=== PATIENT | male | born 1985 | race African-American/Black ===

== ENCOUNTER 2020-09-14 10:15 | Emergency (ER) | payer BC, SELFPAY | END 2020-09-14 10:57 | disposition home or self-care (01) | LOC: CSHERS 10:15 | DX: S33.5XXA Sprain of ligaments of lumbar spine, initial encounter (principal); K21.9 Gastro-esophageal reflux disease without esophagitis; X50.9XXA Other and unspecified overexertion or strenuous movements or postures, initial encounter | CPT/HCPCS: 99283 ==

== ENCOUNTER 2020-10-17 19:31 | Emergency (ER) | payer BC ==
[2020-10-17] MEDS ORDERED: EPINEPHrine 1 MG/ML AMP ONE (19:44)
[2020-10-17] MEDS ORDERED: Famotidine/PF 20 mg/2ml Vial ONE (19:47)
[2020-10-17] MEDS ORDERED: methylPREDNISolone Sod Succ/PF 125 MG/2 ML VIAL ONE (19:47)
[2020-10-17] MEDS ORDERED: diphenhydrAMINE 50 MG/ML VIAL ONE (19:47)
[2020-10-17] MEDS ORDERED: Ondansetron PF 4 MG/2 ML Vial ONE (19:52)
== END 2020-10-17 22:10 | disposition home or self-care (01) ==
LOC: CSHERS 19:31
DX: T78.09XA Anaphylactic reaction due to other food products, initial encounter (principal); K21.9 Gastro-esophageal reflux disease without esophagitis
CPT/HCPCS: 96372; 96374; 96375; J0171; J1200; J2405; J2930; S0028

== ENCOUNTER 2021-05-16 17:23 | Emergency (ER) | payer BC, SELFPAY | END 2021-05-16 18:10 | disposition home or self-care (01) | LOC: CSHERS 17:23 | DX: L29.9 Pruritus, unspecified (principal) | CPT/HCPCS: 99282 ==

== ENCOUNTER 2021-08-14 14:29 | Emergency (ER) | payer SELFPAY ==
[2021-08-14 17:04] LABS: #Eosinphils 0.1 10x3/uL (0.0-0.5); #Monocytes 0.4 10x3/uL (0.0-1.1); #Neutrophils 3.2 10x3/uL (1.5-8.4); %Basophils 0.3 % (0.0-2.0); %Eosinophils 1.9 % (0.0-6.0); %Lymphocytes 46.3 % (18.0-47.0); %Monocytes 5.5 % (0.0-10.0); %Neutrophils 45.7 % (40.0-75.0); Hemoglobin 14.4 g/dL (13.5-17.5); Mean Corpuscular Volume 84.7 fl (81.2-95.1); Mean Platelet Volume 10.2 fl (7.4-10.4); Platelet Count 282 10x3/uL (150-450); RBC Distribution Width 12.4 % (11.5-14.5); Red Blood Cell (RBC) Count 5.15 10x6/uL (4.32-5.72); White Blood Cell (WBC) Count 6.9 10x3/uL (3.5-10.5)
[2021-08-14 17:16] LABS: ALT (SGPT) 27 U/L (8-55); AST (SGOT) 19 U/L (5-34); Albumin 3.9 g/dL (3.5-5.0); Alkaline Phosphatase 59 U/L (40-110); Anion Gap 12 mmol/L (10-20); BUN (Urea Nitrogen) 9 mg/dL (8.9-20.6); Bilirubin, Total 0.6 mg/dL (0.2-1.2); Calc. Creatinine Clearance 0 mL/min (70-130); Calcium 9.2 mg/dL (7.8-10.44); Carbon Dioxide 26 mmol/L (22-29); Chloride 105 mmol/L (98-107); Globulin 4.1 g/dL (2.4-3.5); Glucose 77 mg/dL (70-105); Potassium 4.1 mmol/L (3.5-5.1); Sodium 139 mmol/L (136-145)
== END 2021-08-14 17:28 | disposition home or self-care (01) ==
LOC: CSHERS 14:29
DX: L29.9 Pruritus, unspecified (principal); K21.9 Gastro-esophageal reflux disease without esophagitis; R73.03 Prediabetes
CPT/HCPCS: 36415; 80053; 85025; 99283

== ENCOUNTER 2021-10-25 05:58 | Emergency (ER) | payer SELFPAY ==
[2021-10-25] MEDS ORDERED: Famotidine 20 MG TAB ONE (06:34)
[2021-10-25] MEDS ORDERED: Acetaminophen 500 MG TAB ONE (06:34)
[2021-10-25] MEDS ORDERED: Mag-Al Plus 1200 MG/1200 MG/120 MG/30 ML UDCUP ONE (06:35)
[2021-10-25 06:49] LABS: #Eosinphils 0.1 10x3/uL (0.0-0.5); #Monocytes 0.3 10x3/uL (0.0-1.1); #Neutrophils 3.3 10x3/uL (1.5-8.4); %Basophils 0.3 % (0.0-2.0); %Eosinophils 1.5 % (0.0-6.0); %Lymphocytes 39.1 % (18.0-47.0); %Monocytes 5.1 % (0.0-10.0); %Neutrophils 53.7 % (40.0-75.0); Hemoglobin 14.5 g/dL (13.5-17.5); Mean Corpuscular HGB CONC 33.3 g/dL (32.0-36.0); Mean Corpuscular Hemoglobin 28.4 pg (27.0-33.0); Mean Corpuscular Volume 85.5 fl (81.2-95.1); Mean Platelet Volume 10.1 fl (7.4-10.4); Platelet Count 251 10x3/uL (150-450); RBC Distribution Width 12.6 % (11.5-14.5); White Blood Cell (WBC) Count 6.1 10x3/uL (3.5-10.5)
[2021-10-25 07:05] LABS: ALT (SGPT) 23 U/L (8-55); AST (SGOT) 16 U/L (5-34); Albumin 3.7 g/dL (3.5-5.0); Alkaline Phosphatase 58 U/L (40-110); Anion Gap 12 mmol/L (10-20); BUN (Urea Nitrogen) 8 mg/dL (8.9-20.6); Bilirubin, Total 0.4 mg/dL (0.2-1.2); Calc. Creatinine Clearance 0 mL/min (70-130); Calcium 8.9 mg/dL (7.8-10.44); Carbon Dioxide 26 mmol/L (22-29); Chloride 107 mmol/L (98-107); Globulin 3.7 g/dL (2.4-3.5); Glucose 135 mg/dL (70-105); Potassium 3.8 mmol/L (3.5-5.1); Protein, Total 7.4 g/dL (6.0-8.3); Sodium 141 mmol/L (136-145)
== END 2021-10-25 08:19 | disposition home or self-care (01) ==
LOC: CSHERS 05:58
DX: R07.89 Other chest pain (principal); K21.9 Gastro-esophageal reflux disease without esophagitis; R51.9 Headache, unspecified
CPT/HCPCS: 36415; 71045; 80053; 84484; 85025; 93005

== ENCOUNTER 2021-12-02 10:07 | Emergency (ER) | payer SELFPAY ==
[2021-12-02 11:32] LABS: ALT (SGPT) 19 U/L (8-55); AST (SGOT) 16 U/L (5-34); Albumin 3.9 g/dL (3.5-5.0); Alkaline Phosphatase 46 U/L (40-110); Anion Gap 13 mmol/L (10-20); BUN (Urea Nitrogen) 8 mg/dL (8.9-20.6); Bilirubin, Total 0.8 mg/dL (0.2-1.2); Calc. Creatinine Clearance 0 mL/min (70-130); Calcium 8.8 mg/dL (7.8-10.44); Carbon Dioxide 24 mmol/L (22-29); Chloride 106 mmol/L (98-107); Globulin 3.5 g/dL (2.4-3.5); Glucose 96 mg/dL (70-105); Potassium 3.8 mmol/L (3.5-5.1); Protein, Total 7.4 g/dL (6.0-8.3); Sodium 139 mmol/L (136-145)
[2021-12-02 11:54] LABS: #Eosinphils 0.1 10x3/uL (0.0-0.5); #Monocytes 0.4 10x3/uL (0.0-1.1); #Neutrophils 3.2 10x3/uL (1.5-8.4); %Basophils 0.3 % (0.0-2.0); %Eosinophils 1.8 % (0.0-6.0); %Lymphocytes 43.5 % (18.0-47.0); %Monocytes 5.5 % (0.0-10.0); %Neutrophils 48.6 % (40.0-75.0); Mean Corpuscular HGB CONC 34.5 g/dL (32.0-36.0); Mean Corpuscular Hemoglobin 28.3 pg (27.0-33.0); Mean Corpuscular Volume 82.2 fl (81.2-95.1); Mean Platelet Volume 10.2 fl (7.4-10.4); Platelet Count 231 10x3/uL (150-450); RBC Distribution Width 12.9 % (11.5-14.5); Red Blood Cell (RBC) Count 4.94 10x6/uL (4.32-5.72); White Blood Cell (WBC) Count 6.5 10x3/uL (3.5-10.5)
== END 2021-12-02 12:04 | disposition home or self-care (01) ==
LOC: CSHERS 10:07
DX: R42 Dizziness and giddiness (principal); K21.9 Gastro-esophageal reflux disease without esophagitis; R73.03 Prediabetes
CPT/HCPCS: 36415; 36416; 80053; 84484; 85025; 93005

== ENCOUNTER 2022-01-16 18:56 | Emergency (ER) | payer SELFPAY | END 2022-01-16 20:25 | disposition home or self-care (01) | LOC: CSHERS 18:56 | DX: R07.89 Other chest pain (principal); L03.032 Cellulitis of left toe | CPT/HCPCS: 99284 ==

== ENCOUNTER 2022-03-06 06:34 | Emergency (ER) | payer SELFPAY ==
[2022-03-06] MEDS ORDERED: Ketorolac Tromethamine 30 MG/ML VIAL ONE (08:24)
[2022-03-06] MEDS ORDERED: Metoclopramide HCl 10 MG/2 ML VIAL ONE (08:24)
== END 2022-03-06 09:55 | disposition home or self-care (01) ==
LOC: CSHERS 06:34
DX: R51.9 Headache, unspecified (principal)
CPT/HCPCS: 70450; 96374; 96375; J1885; J2765

== ENCOUNTER 2022-09-30 15:23 | Emergency (ER) | payer SELFPAY | END 2022-09-30 16:30 | disposition left against medical advice (07) | LOC: CSHERS 15:23 | DX: Z53.21 Procedure and treatment not carried out due to patient leaving prior to being seen by health care provider (principal) ==

== ENCOUNTER 2022-09-30 18:21 | Emergency (ER) | payer SELFPAY | END 2022-09-30 19:30 | disposition home or self-care (01) | LOC: CSHERS 18:21 | DX: R19.7 Diarrhea, unspecified (principal) | CPT/HCPCS: 99283 ==

== ENCOUNTER 2024-01-23 10:37 | Emergency (ER) | payer SELFPAY ==
[2024-01-23] MEDS ORDERED: Fluorescein Opthalmic Strip ONE (10:50)
== END 2024-01-23 11:19 | disposition home or self-care (01) ==
LOC: CSHERS 10:37
DX: H11.31 Conjunctival hemorrhage, right eye (principal)
CPT/HCPCS: 99283

== ENCOUNTER 2024-05-04 19:52 | Emergency (ER) | payer OTHER ==
[2024-05-04] MEDS ORDERED: Ibuprofen 200 MG TAB ONE (20:36)
[2024-05-04] MEDS ORDERED: Acetaminophen 500 MG TAB ONE (20:36)
== END 2024-05-04 21:17 | disposition home or self-care (01) ==
LOC: CSHERS 19:52
DX: J06.9 Acute upper respiratory infection, unspecified (principal); J02.9 Acute pharyngitis, unspecified; B97.89 Other viral agents as the cause of diseases classified elsewhere; R51.9 Headache, unspecified; R03.0 Elevated blood-pressure reading, without diagnosis of hypertension; Z55.0 Illiteracy and low-level literacy
CPT/HCPCS: 87081; 87428; 87430; 99284